=== PATIENT | female | born 2000 | race Caucasian/White ===

== ENCOUNTER 2022-09-27 10:44 | Inpatient (IN) | payer OTHER ==
[~2022-09-27] VITALS: Ht 154.9 cm; Wt 58.3 kg
[2022-09-27] MEDS ORDERED: FAMOTIDINE 10 MG/ML 2 ML VIAL IVP ONE (11:00)
[2022-09-27] MEDS ORDERED: MethylPREDNISolone SOD SUCC 125 MG/2 ML VIAL IVP ONE (11:00)
[2022-09-27] MEDS ORDERED: SODIUM CHLORIDE 0.9% 1,000 ML IV ONE (11:00)
[2022-09-27 11:01] LABS: COVID AG,FIA SOURCE NASAL SWAB
[2022-09-27 11:49] LABS: BASOPHILS % (AUTO) 1.4 % (0.0-2.0); EOSINOPHILS % (AUTO) 3.2 % (1.0-6.0); HEMATOCRIT 35.7 % (36-46); HEMOGLOBIN 12.2 g/dL (12.0-16.0); LYMPHOCYTES # (AUTO) 2.7 K/uL (1.0-4.8); LYMPHOCYTES % (AUTO) 44.2 % (22.0-44.0); MEAN CORPUSCULAR HEMOGLOBIN 34.4 pg (26.0-34.0); MEAN CORPUSCULAR HGB CONC 34.2 G/dL (31.0-37.0); MEAN CORPUSCULAR VOLUME 100 fL (80-100); MONOCYTES # (AUTO) 0.5 K/uL (0.1-1.0); MONOCYTES % (AUTO) 7.6 % (2.0-9.0); NEUTROPHILS # (AUTO) 2.6 K/uL (1.8-7.7); NEUTROPHILS % (AUTO) 43.6 % (40.0-70.0); PLATELET COUNT (AUTO) 235 K/uL (150-450); RED BLOOD CELL COUNT(AUTO) 3.56 MIL/uL (4.00-5.20); RED CELL DISTRIBUTION WIDTH 12.6 % (11.5-14.5)
[2022-09-27 12:11] LABS: ANION GAP 8 mmol/L (8-16); CALCIUM, TOTAL 8.6 mg/dL (8.8-10.5); CARBON DIOXIDE 30 mmol/L (22-29); CHLORIDE 101 mmol/L (98-107); CREATININE 0.98 mg/dL (0.60-1.30); GLOMERULAR FILTR. RATE CALC > 60 mL/min (>60); GLUCOSE,RANDOM 128 mg/dL (70-110); POTASSIUM 3.2 mmol/L (3.5-5.1); SODIUM SERUM 139 mmol/L (136-145); UREA NITROGEN, BLOOD 11 mg/dL (7-18)
[2022-09-27] MEDS ORDERED: LORazepam 2 MG/ML VIAL IVP ONE (12:15)
[2022-09-27 12:16] LABS: ALANINE AMINOTRANSFERASE 20 U/L (12-78); ALBUMIN 4.1 g/dL (3.4-5.0); ALKALINE PHOSPHATASE 81 U/L (46-116); ASPARTATE AMINOTRANSFERASE 18 U/L (15-37); BILIRUBIN,TOTAL 0.2 mg/dL (0.1-1.0); CREATINE KINASE, TOTAL ONLY 98 U/L (26-192); TOTAL PROTEIN, SERUM 7.5 g/dL (6.4-8.2)
[2022-09-27 13:10] LABS: APPEARANCE,URINE CLEAR (CLEAR); BILIRUBIN,URINE NEGATIVE (NEGATIVE); GLUCOSE, URINE (UA) NEGATIVE (NEGATIVE); KETONES,URINE NEGATIVE (NEGATIVE); LEUKOCYTE ESTERASE ,URINE NEGATIVE (NEGATIVE); NITRATE,URINE NEGATIVE (NEGATIVE); OCCULT BLOOD,URINE NEGATIVE (NEGATIVE); PROTEIN,URINE NEGATIVE (NEGATIVE); SPECIFIC GRAVITIY, URINE 1.006 (1.003-1.030); UROBILINOGEN,URINE <=1.0 mg/dL (<=1.0)
[2022-09-27] MEDS ORDERED: MORPHINE SULFATE 2 MG/ML SYRINGE IVP PRN (14:00)
[2022-09-27] MEDS ORDERED: HYDROCODONE/ACETAMINOPHEN 5-325 MG TABLET PO PRN (14:00)
[2022-09-27] MEDS ORDERED: ONDANSETRON HCL 4 MG/2 ML VIAL IVP PRN (14:00)
[2022-09-27] MEDS ORDERED: BISACODYL 10 MG RECTAL RECTAL SUPPOSITORY PR PRN (14:00)
[2022-09-27] MEDS ORDERED: ACETAMINOPHEN 325 MG TABLET PO PRN (14:00)
[2022-09-27] MEDS ORDERED: MAGNESIUM HYDROXIDE SUSPENSION 30 ML UDCUP PO PRN (14:00)
[2022-09-27] MEDS ORDERED: ZOLPIDEM TARTRATE 5 MG TABLET PO PRN (14:00)
[2022-09-27 14:51] VITALS: BP 126/62
[2022-09-27] MEDS ORDERED: POTASSIUM CHLORIDE 20 MEQ ER TABLET PO ONE (15:15)
[2022-09-27] MEDS: MethylPREDNISolone SOD SUCC 40 MG/ML VIAL IVP SCH ×2 (16:33→23:54)
[2022-09-27] MEDS: HEPARIN SODIUM,PORCINE 5,000 UNITS/ML VIAL SQ SCH ×2 (16:34→23:52)
[2022-09-27] MEDS: LORazepam 1 MG TABLET PO PRN ×2 (18:24→23:54)
[2022-09-27 20:19] VITALS: BP 113/63
[2022-09-27] MEDS: DOCUSATE SODIUM 100 MG CAPSULE PO SCH (21:00)
[2022-09-27] MEDS: DiphenhydrAMINE HCL 50 MG/ML VIAL IVP SCH (21:27)
[2022-09-27] MEDS: FAMOTIDINE 10 MG/ML 2 ML VIAL IVP SCH (21:28)
[2022-09-28] MEDS ORDERED: MIRTAZAPINE 15 MG TABLET PO SCH
[2022-09-28 05:13] VITALS: BP 116/74
[2022-09-28 07:46] VITALS: BP 106/64
[2022-09-28] MEDS: FAMOTIDINE 10 MG/ML 2 ML VIAL IVP SCH (08:05)
[2022-09-28] MEDS: MethylPREDNISolone SOD SUCC 40 MG/ML VIAL IVP SCH (08:05)
[2022-09-28] MEDS: DiphenhydrAMINE HCL 50 MG/ML VIAL IVP SCH (08:05)
[2022-09-28] MEDS: LORazepam 1 MG TABLET PO PRN (08:05)
[2022-09-28] MEDS: HEPARIN SODIUM,PORCINE 5,000 UNITS/ML VIAL SQ SCH (08:05)
[2022-09-28] MEDS: DOCUSATE SODIUM 100 MG CAPSULE PO SCH (08:05)
[2022-09-28] MEDS ORDERED: PANTOPRAZOLE SODIUM 40 MG DR TABLET PO SCH (09:00)
== END 2022-09-28 10:30 | disposition left against medical advice (07) | DRG 811 ==
LOC: EMS 10:45 → AHU 11:42 → 5N 14:09
PROVIDERS: ADMIT Internal Medicine; ATTEND Internal Medicine
DX: T78.3XXA Angioneurotic edema, initial encounter (principal); E44.0 Moderate protein-calorie malnutrition; T78.2XXA Anaphylactic shock, unspecified, initial encounter; F41.9 Anxiety disorder, unspecified; Z68.24 Body mass index [BMI] 24.0-24.9, adult; E03.9 Hypothyroidism, unspecified; R73.9 Hyperglycemia, unspecified; E87.6 Hypokalemia; F12.10 Cannabis abuse, uncomplicated; I25.10 Atherosclerotic heart disease of native coronary artery without angina pectoris; Z87.820 Personal history of traumatic brain injury; Z91.018 Allergy to other foods; I25.2 Old myocardial infarction; Z91.011 Allergy to milk products; Z91.030 Bee allergy status; Z88.8 Allergy status to other drugs, medicaments and biological substances; Y92.89 Other specified places as the place of occurrence of the external cause
CPT/HCPCS: 80053; 81003; 82550; 84132; 84484; 85025; 93005; 99291; J1200; J1644; J2060; J2405; J2920; J2930; J3490; J7030